=== PATIENT | female | born 1960 | race Caucasian/White ===

== ENCOUNTER 2025-01-14 16:20 | Inpatient (IN) | payer OTHER ==
[~2025-01-14] VITALS: Ht 152.4 cm; Wt 57.6 kg
[2025-01-14 16:30] VITALS: RESP 10; O2SAT 96
[2025-01-14] MEDS ORDERED: SODIUM CHLORIDE 0.9% 1,000 ML IV ONE (16:45)
--- NOTE | 2025-01-14 16:45 | ED.PDOC ---
Psychiatric HPI Comments 64-year-old female who presents to the ED via EMS complaint overdose EMS states patient [place] with friends who state patient overdosed on fentanyl Patient friends administered 3 rounds of Narcan and EMS was called EMS arrived on scene and noted patient was alert and oriented x3 but slow to answering questions Patient was in ambulance EN route to the ED and noted to appear drowsy and lethargic and EMS gave patient 2 mg IM Narcan and patient became alert and oriented EMS states patient refused IV prior to ED arrival Patient in the ED states she has overdosed on Narcan in the past and states she is currently on methadone which she states is compliant Patient now in the ED alert and oriented x3 patient with the ED as noted blood pressure 168/79 but otherwise stable vitals including heart rate 72 respiratory rate 16 temperature 97.1 F and O2 saturation of 96% on room air Past Medical history: CHF, hypertension Past Surgical history: back surgery Medications: Methadone Allergies: Denies Social history: denies ETOH, denies tobacco use, endorses drug use(fentanyl) carabasal: HPI: Poor Historian. Denies any fall or trauma or injury. REVIEW OF SYSTEMS: CONSTITUTIONAL: Denies acute: fever, diaphoresis, chills, HEAD: Denies acute: headache, photophobia Eyes: Denies acute: Double vision, vision loss, eye pain, eye discharge. EARS: Denies acute: tinnitus, hearing loss, ear discharge, ear pain, THROAT: Denies acute: sore throat, swelling, difficulty swallowing , pain with swallowing, change in voice. NECK: Denies acute: neck pain, neck swelling, stiff neck. HEART: Denies acute : chest pain, palpitations, LUNGS: Denies acute: SOB, wheezing, cough, hemoptysis ABDOMEN: Denies acute: abdominal pain, Nausea, Vomiting, diarrhea, melena , hematemesis, hematochezia SKIN: Denies acute: rash, redness, lesions, itchiness. EXTREMITIES: Denies acute: calf pain, numbness, tingling, weakness, denies pain in extremity. Denies acute: Low back pain. Neuro: Denies acute: focal neurological deficit, motor or sensory focal neurological deficit, tremors, seizure like activity, confusion, dizziness, change in mental status, loss of bowel or bladder function, cauda equina like symptoms. : Denies acute: dysuria, hematuria, flank pain, increase in urinary frequency. PSYCH: Denies acute: hallucination, suicidal ideation, homicidal ideation. FEMALE: Denies acute: abnormal vaginal bleeding, foul odor, unusual discharge. PHYSICAL EXAM: General: ------no--acute distress, awake and alert. Appears under the influence of fentanyl. Multiple tattoos noted. Patient is holding a cane. Head: normocephalic, atraumatic. Neck: supple, trachea is midline, no swelling. Throat: Normal phonation. Eyes:, no erythema, no purulent discharge, no proptosis, no icterus. Heart: regular rate, regular rhythm, no significant murmur appreciated. Lungs: no apparent respiratory distress, No wheezing, no rhonchi, no crackles. No stridors Clear to auscultation bilaterally. Abdomen: non tender to palpation, non distended, soft, no guarding, no rebound, + bowel sounds. Neuro: Awake, Alert, oriented to name, self, situation, follows commands GCS=15. Speech is normal. Skin: no petechia, no purpura, no cyanosis, non-pale, not jaundice. Lower extremities: --no - Pitting edema no deformity, no focal swelling, no calf TTP. Makes eye contact. moves all four extremities. Face: no apparent facial droop. ED COURSE: DISCLAIMER: This medical document was created using an electronic medical record system with voice recognition software and computerized dictation system. Although this document has been carefully reviewed, there might still be some phonetic and typographical errors. Occasional wrong-word or "sound-alike" substitutions may have occurred due to the inherent limitations of voice recognition software. These areas are purely typographical due to imperfections of the software programs and do not reflect any compromise in the patient's medical care. Please read the chart carefully and recognize, using context, where these substitutions have occurred. Chief Complaint: Overdose Time Seen by MD: 16:55 Reviewed Notes: Kerrick Kleaner Operator Notes, Medications, Allergies Information Source: Patient, Emergency Med Personnel Mode of Arrival: EMS Past Medical History PAST MEDICAL HISTORY: CHF, HTN Social History Drugs: Other (Fentanyl) Was a procedure done? Was a procedure done?: No Psych Differential Dx OD Differential Dx: Alcohol Abuse, Anxiety, Bipolar Disorder, Conversion Disorder, Delirium, Depression, Drug Overdose, Accidental, Intentional, Encephalopathy, Hallucinations, Homicidal, Panic Disorder, Personality Disorder, Renal Failure, Respiratory Failure, Schizophrenia, Substance Abuse, Suicidal Attempt, Suicidal Gesture X-Ray, Labs, Meds, VS Vital Signs Date Time Temp Pulse Resp B/P (MAP) Pulse Ox O2 Delivery O2 Flow Rate FiO2 01/15/25 00:00 85 19 124/76 (92) 99 01/14/25 23:28 84 147/90 01/14/25 22:28 86 159/90 01/14/25 22:00 87 15 151/83 (105) 98 01/14/25 21:13 182/103 01/14/25 20:12 184/95 01/14/25 20:00 81 01/14/25 19:25 76 192/104 (133) 01/14/25 19:00 70 7 161/91 (114) 99 01/14/25 17:00 98.4 74 10 168/96 (120) 96 98.4 01/14/25 16:30 10 96 Nasal Cannula* 2 28 01/14/25 16:28 97.1 72 16 168/79 96 97.1 Lab Test 01/14/25 19:57 01/14/25 18:02 01/14/25 16:56 01/14/25 16:36 Range/Units Total Bilirubin 0.3 0.3 0.2-1.0 mg/dL Direct Bilirubin < 0.1 <0.3 mg/dL Aspartate Amino Transferase (AST) 45 H 39 13-40 U/L Alanine Aminotransferase (ALT) 33 27 7-40 U/L Alkaline Phosphatase 145 H 130 H 46-116 U/L Troponin I High Sensitivity 8 7 7 </=34 ng/L Total Protein 8.1 7.9 5.7-8.2 g/dL Albumin 4.3 4.3 3.2-4.8 g/dL White Blood Count 3.7 L 4.4-10.8 10^3/uL Red Blood Count 4.28 4.0-5.20 10^6/uL Hemoglobin 11.7 L 12.2-16.2 g/dL Hematocrit 36.4 36.0-46.0 % Mean Corpuscular Volume 85.2 80.0-100.0 fL Mean Corpuscular Hemoglobin 27.4 L 28.0-32.0 pg Mean Corpuscular Hemoglobin Concent 32.2 32.0-36.0 g/dL Red Cell Distribution Width 13.5 11.8-14.3 % Platelet Count 251 140-450 10^3/uL Mean Platelet Volume 7.3 6.9-10.8 fL Neutrophils (%) (Auto) 52.6 37.0-80.0 % Lymphocytes (%) (Auto) 35.7 10.0-50.0 % Monocytes (%) (Auto) 10.5 0.0-12.0 % Eosinophils (%) (Auto) 0.5 0.0-7.0 % Basophils (%) (Auto) 0.7 0.0-2.0 % Neutrophils # (Auto) 2.0 1.6-8.6 10 ^3/uL Lymphocytes # (Auto) 1.3 0.4-5.4 10 ^3/uL Monocytes # (Auto) 0.4 0-1.3 10 ^3/uL Eosinophils # (Auto) 0 0-0.8 10 ^3/uL Basophils # (Auto) 0 0-0.2 10 ^3/uL Nucleated Red Blood Cells 0.3 % Sodium Level 138 136-145 mmol/L Potassium Level 3.6 3.5-5.1 mmol/L Chloride Level 103 98-107 mmol/L Carbon Dioxide Level 27 20-31 mmol/L Anion Gap 8 5-15 Blood Urea Nitrogen 26 H 9-23 mg/dL Creatinine 1.39 H 0.550-1.02 mg/dL Glomerular Filtration Rate Calc 42 >90 mL/min BUN/Creatinine Ratio 18.7 10.0-20.0 Serum Glucose 68 L 74-106 mg/dL Lactic Acid Level 1.3 0.4-2.0 mmol/L Calcium Level 9.5 8.7-10.4 mg/dL B-Type Natriuretic Peptide 82.61 0-100 pg/mL Urine Color Colorless Yellow Urine Clarity Clear Clear Urine pH 5.5 5.0-9.0 Urine Specific [place] 1.009 1.001-1.035 Urine Protein Negative Negative Urine Ketones Negative Negative Urine Blood Negative Negative /uL Urine Nitrite 2+ H Negative Urine Bilirubin Negative Negative Urine Urobilinogen Normal Negative mg/dL Urine Leukocyte Esterase Negative Negative /uL Urine RBC 1 0 - 4 /hpf Urine Microscopic WBC < 1 0-5 /HPF Urine Squamous Epithelial Cells Few <5 /hpf Urine Bacteria Few H None Seen /hpf Urine Hyaline Casts Few 0 - 2 /lpf Urine Granular Casts Few 0 /lpf Urine Glucose Normal Normal mg/dL Urine Opiates Screen Neg NEGATIVE Urine Fentanyl Screen Pos NEGATIVE Urine Barbiturates Screen Neg NEGATIVE Urine Phencyclidine Screen Neg NEGATIVE Urine Amphetamines Screen Pos NEGATIVE Urine Benzodiazepines Screen Neg NEGATIVE Urine Cocaine Screen Neg NEGATIVE Urine Cannabinoids Screen Neg NEGATIVE [facility] [id number] [place] [address] Ph: [phone] DIAGNOSTIC IMAGING Diagnostic Imaging Report : [id number] Signed PATIENT: NARCISA DUKE ACCT: [id number] UNIT: [id number] : 1960 LOC: ER ROOM / BED: / AGE / SEX: 64 / F ADM STATUS: REG ER SERVICE 35 ORDERING PHYSICIAN: EMILI GÓMEZ DO PROCEDURE(s): CXRP - CHEST PORTABLE REASON: OD, ALOC ORDER NUMBER(s): [id number], ACCESSION NUMBER(s): [id number] EXAM: XY CHEST PORTABLE HISTORY: OD, ALOC TECHNIQUE: 1 view of the chest COMPARISON: None FINDINGS/IMPRESSION: LUNGS: No pleural effusion, consolidation, or pneumothorax . Central pulmonary vascular congestion. Question peripheral interstitial edema and trace fluid along the right minor fissure. MEDIASTINUM: Unremarkable BONES: No acute osseous abnormality . Prior anterior cervical discectomy and fusion OTHER: None ATED BY: GAVIOTA MIGUEL MD DICTATED DATE/TIME: 01/14/251709 SIGNED BY: GAVIOTA MIGUEL MD SIGNED DATE/TIME: 01/14/251709 CC: Time of 1ST Reevaluation: 00:00 Reevaluation 1ST: N/A Patient Education/Counseling: Diagnosis, Treatment Family Education/Counseling: No Family Present Comments MDM: patient presented with the above HPI.--altered level of consciousness drug overdose----workup was initiated. patient was found with the above mentioned diagnosis. the following medications were ordered: please refer to order lists of meds and tests obtained by myself Dr. Gómez. Patient ED course and VS have been stabilized. Patient has been reassessed in the ED and remained in a stable condition. Pertinent incidental findings were discussed with the patient and/or family. Patient has been observed in the ED adequate length of time to insure improvement/stability. Escalation of care considered: Consideration of escalation to observation or admission Patient was ADMITTED to the medicine team for further evaluation and treatment of their presentation. All the reports of any imaging studies that were ordered by myself were reviewed by myself. Departure 1 Departure Time of Disposition: 19:30 Impression: Primary Impression: Overdose of fentanyl Additional Impressions: Methamphetamine abuse Hypertension Hypertensive crisis Altered level of consciousness Methadone dependence Disposition: ADMITTED INPATIENT Admit to: Tele Condition: Guarded e-Prescriptions No Active Prescriptions or Reported Meds Discharged With: Self Critical Care Note Critical Care Time?: Yes (1 hr-critical care time only) I personally scribed for EMILI GÓMEZ DO ([email or web address]) on 01/14/25 at 16:45. Electronically submitted by Ac Perez ([employer]). I personally scribed for EMILI GÓMEZ DO ([email or web address]) on 01/14/25 at 16:56. Electronically submitted by Ac Perez ([employer]). I personally scribed for EMILI GÓMEZ DO ([email or web address]) on 01/14/25 at 17:15. Electronically submitted by Ac Perez ([employer]). I personally scribed for EMILI GÓMEZ DO ([email or web address]) on 01/14/25 at 21:43. Electronically submitted by Ac Perez ([employer]). EMILI GÓMEZ DO Jan 14, 2025 16:45
--- NOTE | 2025-01-14 17:12 | DVH ---
EXAM: XY CHEST PORTABLE HISTORY: OD, ALOC TECHNIQUE: 1 view of the chest COMPARISON: None FINDINGS/IMPRESSION: LUNGS: No pleural effusion, consolidation, or pneumothorax . Central pulmonary vascular congestion. Q uestion peripheral interstitial edema and trace fluid along the right minor fissure. MEDIASTINUM: Unremarkable BONES: No acute osseous abnormality . Prior anterior cervical discectomy and fusion OTHER: None
[2025-01-14 17:13] LABS: Hematocrit 36.4 % (36.0-46.0); Hemoglobin 11.7 g/dL (12.2-16.2); Mean Corpuscular Hemoglobin 27.4 pg (28.0-32.0); Mean Corpuscular Volume 85.2 fL (80.0-100.0); Nucleated Red Blood Cells % 0.3 %
[2025-01-14 17:28] LABS: Alanine Aminotransferase 27 U/L (7-40); Albumin 4.3 g/dL (3.2-4.8); Alkaline Phosphatase 130 U/L (46-116); Anion Gap 8 (5-15); BUN/Creatinine Ratio 18.7 (10.0-20.0); Bilirubin, Total 0.3 mg/dL (0.2-1.0); Blood Urea Nitrogen 26 mg/dL (9-23); Calcium 9.5 mg/dL (8.7-10.4); Carbon Dioxide 27 mmol/L (20-31); Chloride 103 mmol/L (98-107); Glucose 68 mg/dL (74-106); Potassium 3.6 mmol/L (3.5-5.1); Sodium 138 mmol/L (136-145); Total Protein 7.9 g/dL (5.7-8.2)
[2025-01-14 18:37] LABS: Benzodiazephine Screen, Urine Neg (NEGATIVE)
[2025-01-14 18:39] LABS: Amphetamine Screen, Urine Pos (NEGATIVE); Barbiturate Scree,Urine Neg (NEGATIVE); Cannabinoid Screen, Urine Neg (NEGATIVE); Cocaine Screen, Urine Neg (NEGATIVE); Opiate Scree,Urine Neg (NEGATIVE); Phencyclidine Screen, Urine Neg (NEGATIVE)
[2025-01-14] MEDS: NALOXONE HCL 1MG/ML 2ML SYRINGE SUBCUT ONE (19:06)
[2025-01-14] MEDS: NALOXONE HCL 1MG/ML 2ML SYRINGE IV ONE ×2 (19:06→20:12)
[2025-01-14] MEDS: DEXTROSE (50%) 50ML SYRG IV ONE (19:06)
[2025-01-14] MEDS: hydrALAZINE HCL 20 MG/ML VL IV ONE ×3 (20:12→21:13)
--- NOTE | 2025-01-14 21:28 | DVH ---
Exam: CT HEAD WITHOUT CONTRAST History: HTN, OD Technique: [address] images through the posterior fossa and the supratentorial compart ment were acquired without contrast and imaged using soft tissue and bone algorithms. RADIATION DOSE: DLP 312.59 mGy.cm; CTDI vol 52.95 mGy. Comparison: None Findings: There is no evidence of an intracranial hemorrhage, acute large vessel infarct, mass effect, or midli ne shift. There is mild cerebral atrophy. No significant calcification of the carotid siphons. The calvarium, orbits, paranasal sinuses, sella, middle ears, and mastoids are unremarkable. The superficial soft tissues are within normal limits. Impression: 1. No acute intracranial abnormality.
--- NOTE | 2025-01-14 22:05 | ECG ---
[facility] Test Date: 2025-01-14 Test Time: 20:54:38 Pat Name: NARCISA DUKE Department: ED Room: 0270T Gender: F Boarding Mother: KIT : 1960 Requested By: EMILI GÓMEZ Order Number: [id number] Reading MD: Lupillo Crouch Measurements Intervals [place] Rate: 75 P: 84 WA: 161 QRS: 65 QRSD: 115 T: 81 QT: 497 QTc: 556 Interpretive Statements Sinus rhythm Nonspecific intraventricular conduction delay Anteroseptal infarct, age indeterminate Electronically Signed On 01-21-2025 21:45:23 PDT by Lupillo Crouch Please click the below link to view image of tracing.
[2025-01-14] MEDS: LABETALOL HCL 20 MG/4 ML VL IV ONE ×2 (22:28→22:29)
[2025-01-14] MEDS ORDERED: DEXTROSE (50%) 50ML SYRG IV PRN (22:30)
[2025-01-14 23:01] LABS: Alanine Aminotransferase 33 U/L (7-40); Total Protein 8.1 g/dL (5.7-8.2)
[2025-01-14 23:02] LABS: Albumin 4.3 g/dL (3.2-4.8)
[2025-01-14 23:05] LABS: Alkaline Phosphatase 145 U/L (46-116); Bilirubin, Total 0.3 mg/dL (0.2-1.0)
[2025-01-14 23:22] LABS: Urine Protein, UAD Negative (Negative)
[2025-01-14] MEDS: SODIUM CHLORIDE 0.9% 1,000 ML IV SCH (23:24)
[2025-01-14 23:27] LABS: Bilirubin, Direct < 0.1 mg/dL (<0.3)
[2025-01-15] VITALS (8 sets, daily range): BP systolic 116–149; BP diastolic 68–95; PULSE 66–88; RESP 16–20; TEMP 97–97.8; O2SAT 94–100
[2025-01-15] MEDS: InsuLIN REG 1unit/0.01ml Soln (100units/ml) SC SCH
[2025-01-15] MEDS: ACCU-CHEK COMFORT CURVE STRIP VI SCH (00:01)
--- NOTE | 2025-01-15 00:41 | DVHHPRES ---
History of Present Illness Resident Creating Document: LIAN CLARK RESIDENT History of Present Illness Preethi Feliciano this is a 64-year-old female patient who is brought via EMS to the ED due to altered level of consciousness. Due to clinical status obtain information from EMR. Patient's friends reported patient overdosed on fentanyl and they administered three rounds of Narcan and contacted EMS. When EMS arrived on scene patient was alert and oriented in three spheres but drowsy/somnolent, prompting professionals to bring patient to the emergency department. On route EMS administered 2 mg of IM Narcan due to worsening altered level of consciousness. Could not obtain review of systems since p atient does not recall events. Past medical history: Hypertension, congestive heart failure, rheumatoid arthritis status post cervical spine surgery Surgical history: Cervical spine surgery Family history: Noncontributory Social history: lives in [place] with roommates (next of kin is father). Smokes tobacco (40 pack-year history of smoking), actively smokes marijuana. Fentanyl and methamphetamine abuse. Denies alcohol and other drug abuse Allergies: Denies Home medication: Losartan Patient seen and examined at bedside. She is currently oriented in three spheres, but still very drowsy. Has no complaints. Past Medical History Per HPI Past Surgical History Per HPI Family History Per HPI Past Social History Per HPI Review of Systems Review of Systems Per HPI Allergies: Coded Allergies: NO KNOWN ALLERGIES (Unverified , 01/14/25) Medications Current Medications Medications Dose Ordered Sig/Diana Route Start Time Stop Time Status Last Admin Dose Admin Sodium Chloride 1,000 ml @ 60 mls/hr [id number] IV 01/14/25 22:30 01/14/25 23:24 60 MLS/HR Diagnostic Test (Pha) 1 strip Q6HR 01/15/25 00:00 01/15/25 00:01 1 STRIP Insulin Human Regular Q6HR SC 01/15/25 00:00 Dextrose 50 ml UD PRN IV 01/14/25 22:30 Exam Vital Signs Vital Signs Date Time Temp Pulse Resp B/P (MAP) Pulse Ox O2 Delivery O2 Flow Rate FiO2 01/15/25 00:00 85 19 124/76 (92) 99 01/14/25 17:00 98.4 98.4 01/14/25 16:30 Nasal Cannula* 2 28 Exam Patient lying in bed, in no acute distress General: Lucid, somnolent/drowsy, afebrile, mucosae are moist Cardiovascular: Normal S1 and S2. No murmurs, gallops or rubs Respiratory: Normal ventilation mechanics. Clear lung sounds on auscultation Abdomen: Soft, nontender, no organomegaly, normal bowel sounds MSK/skin: Mobilizes 4 limbs. Skin is dry and warm Neurological: Oriented in 3 spheres. No motor no sensitive deficits. Pupils are isocoric and reactive Labs/Xrays Labs Test 01/14/25 19:57 01/14/25 16:56 01/14/25 16:36 Range/Units Total Bilirubin 0.3 0.2-1.0 mg/dL Direct Bilirubin < 0.1 <0.3 mg/dL Aspartate Amino Transferase (AST) 45 H 13-40 U/L Alanine Aminotransferase (ALT) 33 7-40 U/L Alkaline Phosphatase 145 H 46-116 U/L Troponin I High Sensitivity 8 </=34 ng/L Total Protein 8.1 5.7-8.2 g/dL Albumin 4.3 3.2-4.8 g/dL White Blood Count 3.7 L 4.4-10.8 10^3/uL Red Blood Count 4.28 4.0-5.20 10^6/uL Hemoglobin 11.7 L 12.2-16.2 g/dL Hematocrit 36.4 36.0-46.0 % Mean Corpuscular Volume 85.2 80.0-100.0 fL Mean Corpuscular Hemoglobin 27.4 L 28.0-32.0 pg Mean Corpuscular Hemoglobin Concent 32.2 32.0-36.0 g/dL Red Cell Distribution Width 13.5 11.8-14.3 % Platelet Count 251 140-450 10^3/uL Mean Platelet Volume 7.3 6.9-10.8 fL Neutrophils (%) (Auto) 52.6 37.0-80.0 % Lymphocytes (%) (Auto) 35.7 10.0-50.0 % Monocytes (%) (Auto) 10.5 0.0-12.0 % Eosinophils (%) (Auto) 0.5 0.0-7.0 % Basophils (%) (Auto) 0.7 0.0-2.0 % Neutrophils # (Auto) 2.0 1.6-8.6 10 ^3/uL Lymphocytes # (Auto) 1.3 0.4-5.4 10 ^3/uL Monocytes # (Auto) 0.4 0-1.3 10 ^3/uL Eosinophils # (Auto) 0 0-0.8 10 ^3/uL Basophils # (Auto) 0 0-0.2 10 ^3/uL Nucleated Red Blood Cells 0.3 % Sodium Level 138 136-145 mmol/L Potassium Level 3.6 3.5-5.1 mmol/L Chloride Level 103 98-107 mmol/L Carbon Dioxide Level 27 20-31 mmol/L Anion Gap 8 5-15 Blood Urea Nitrogen 26 H 9-23 mg/dL Creatinine 1.39 H 0.550-1.02 mg/dL Glomerular Filtration Rate Calc 42 >90 mL/min BUN/Creatinine Ratio 18.7 10.0-20.0 Serum Glucose 68 L 74-106 mg/dL Lactic Acid Level 1.3 0.4-2.0 mmol/L Calcium Level 9.5 8.7-10.4 mg/dL B-Type Natriuretic Peptide 82.61 0-100 pg/mL Urine Color Colorless Yellow Urine Clarity Clear Clear Urine pH 5.5 5.0-9.0 Urine Specific [place] 1.009 1.001-1.035 Urine Protein Negative Negative Urine Ketones Negative Negative Urine Blood Negative Negative /uL Urine Nitrite 2+ H Negative Urine Bilirubin Negative Negative Urine Urobilinogen Normal Negative mg/dL Urine Leukocyte Esterase Negative Negative /uL Urine RBC 1 0 - 4 /hpf Urine Microscopic WBC < 1 0-5 /HPF Urine Squamous Epithelial Cells Few <5 /hpf Urine Bacteria Few H None Seen /hpf Urine Hyaline Casts Few 0 - 2 /lpf Urine Granular Casts Few 0 /lpf Urine Glucose Normal Normal mg/dL Urine Opiates Screen Neg NEGATIVE Urine Fentanyl Screen Pos NEGATIVE Urine Barbiturates Screen Neg NEGATIVE Urine Phencyclidine Screen Neg NEGATIVE Urine Amphetamines Screen Pos NEGATIVE Urine Benzodiazepines Screen Neg NEGATIVE Urine Cocaine Screen Neg NEGATIVE Urine Cannabinoids Screen Neg NEGATIVE SEPSIS Sepsis Screen Date sepsis recognized/suspect: Jan 14, 2025 Time Sepsis recognized/suspect: 1619 Recent Procedure: No On Antibiotic Therapy: No Respiratory Rate >20: No Heart Rate >90: No Temp<36 C (96.8 F) or >38.3 C: No SBP <90 or MAP <65 mmHG: No New Acute Mental Status Change: No Is the patient on CPAP, BIPAP,: No Physician Orders Head Without Contrast (01/14/25 20:23) Complete Blood Count (01/15/25 04:00) Basic Metabolic Panel (01/15/25 04:00) Sodium Chloride 0.9% (01/14/25 22:30) Glucose Blood (Accu-Chek Comfort Curve T (01/15/25 00:00) Insulin R (Human) (Insulin R) (01/15/25 00:00) Dextrose 50% Syringe (01/14/25 22:30) Admit (01/15/25 00:38) Code Status (01/15/25 00:38) Acetaminophen Tablet (Tylenol Tablet) (01/15/25 00:45) Npo (Nothing By Mouth) Diet (01/15/25 Breakfast) Echo 2d Mode Cardiac Dop (01/15/25 00:38) Lovenox 40mg (01/15/25 10:00) Oxygen By Nasal Cannula (01/15/25 00:38) Stat Ekg For Chest Pain (01/15/25 00:38) Notify Md Of Changes From Base (01/15/25 00:38) Clam Shucker For 24 Hours (01/15/25 00:38) Emergency Dysrhythmia Protocol (01/15/25 00:38) Rhythm Strips Once Every Shift (01/15/25 00:38) Vital Signs Date Time Temp Pulse Resp B/P (MAP) Pulse Ox O2 Delivery O2 Flow Rate FiO2 01/15/25 00:00 85 19 124/76 (92) 99 01/14/25 23:28 84 147/90 01/14/25 22:28 86 159/90 01/14/25 22:00 87 15 151/83 (105) 98 01/14/25 21:13 182/103 01/14/25 20:12 184/95 01/14/25 20:00 81 01/14/25 19:25 76 192/104 (133) 01/14/25 19:00 70 7 161/91 (114) 99 01/14/25 17:00 98.4 74 10 168/96 (120) 96 98.4 Laboratory Tests Test 01/14/25 16:56 Lactic Acid Level 1.3 mmol/L (0.4-2.0) White Blood Count 3.7 10^3/uL (4.4-10.8) L Medications Medications Dose Ordered Sig/Diana Route Start Time Stop Time Status Last Admin Dose Admin Dextrose 50 ml ONCE ONCE IV 01/14/25 17:45 01/14/25 17:48 DC 01/14/25 19:06 50 ML Diagnostic Test (Pha) 1 strip Q6HR 01/15/25 00:00 01/15/25 00:01 1 STRIP Hydralazine HCl 5 mg ONCE ONCE IV 01/14/25 19:30 01/14/25 19:58 DC 01/14/25 20:12 5 MG Hydralazine HCl 10 mg ONCE ONCE IV 01/14/25 21:00 01/14/25 21:01 DC 01/14/25 21:13 10 MG Labetalol HCl 5 mg ONCE ONCE IV 01/14/25 22:30 01/14/25 22:31 DC 01/14/25 22:28 5 MG Naloxone HCl 4 mg ONCE ONCE IV 01/14/25 16:45 01/14/25 16:46 DC 01/14/25 19:06 4 MG Naloxone HCl 4 mg ONCE ONCE IV 01/14/25 19:45 01/14/25 19:58 DC 01/14/25 20:12 4 MG Sodium Chloride 1,000 ml @ 60 mls/hr [id number] IV 01/14/25 22:30 01/14/25 23:24 60 MLS/HR Assessment/Plan Assessment/Plan Toxic encephalopathy Opiate overdose Polysubstance abuse Completed head CT with no acute intracranial pathology Patient received naloxone to revert opiates affect, received total of five doses. Counseled strongly on cessation of polysubstance abuse for over 16 minutes (UDS positive for opiates and methamphetamine) Admitted the patient to telemetry Acute respiratory failure secondary to depression of respiratory drive Currently on oxygen therapy with Venturi mask at 0.28 FiO2 Hypertensive urgency (probably secondary to methamphetamine) Congestive heart failure no exacerbation (unknown LVEF) Admit to telemetry EKG shows sinus rhythm and no ST elevation, old anterior infarct Ordered echocardiogram Optimize antihypertensive medication KEREN hemodynamically mediated (VMN) Currently on IV fluids with normal saline 60 mL/hr Follow up with BNP Rheumatoid arthritis status post cervical spine surgery Per patient she is not on any DMARDs Recommend follow up with bullard machine operator specialist as outpatient Goals of care discussed with patient for over 18 minutes: Full code status Discussed plan with Dr. Manzanares, patient and nurses: We will admit patient to optimize medical treatment at this point, ordered complementary workup. Patient has poor prognosis Plan discussed with: Patient, Other (Nurses) My Orders Orders - LIAN CLARK Procedure Category Date Status Time Complete Blood Count LAB 01/15/25 Logged 04:00 Basic Metabolic Panel LAB 01/15/25 Logged 04:00 Sodium Chloride 0.9% PHA 01/14/25 In Process 22:30 Glucose Blood PHA 01/15/25 In Process (Accu-Chek Comfort 00:00 Insulin R (Human) PHA 01/15/25 In Process (Insulin R) 00:00 Dextrose 50% Syringe PHA 01/14/25 In Process 22:30 Admit ADMIT 01/15/25 Verified 00:38 Code Status CODE 01/15/25 Verified 00:38 Acetaminophen Tablet PHA 01/15/25 Verified (Tylenol Tablet) 00:45 Npo (Nothing By DIET 01/15/25 Verified Mouth) Diet Breakfast Echo 2d Mode Cardiac US 01/15/25 Verified DOP 00:38 Lovenox 40mg [facility] 01/15/25 Verified 10:00 Oxygen By Nasal RT 01/15/25 Verified Cannula 00:38 Stat Ekg For Chest [facility] 01/15/25 Verified Pain 00:38 Notify Md Of Changes [facility] 01/15/25 Verified From Base 00:38 Clam Shucker For [facility] 01/15/25 Verified 24 Hours 00:38 Emergency Dysrhythmia [facility] 01/15/25 Verified Protocol 00:38 Rhythm Strips Once [facility] 01/15/25 Verified Every Shift 00:38 Date of Service: Jan 15, 2025 Billing Provider: VIKTORIYA MANZANARES MD Common Visit Codes: [id number] INP/OBS CARE (HIGH) Secondary Visit Codes: [id number] CARE PLAN 30 MINUTES LIAN CLARK RESIDENT Jan 15, 2025 00:41
[2025-01-15] MEDS ORDERED: ACETAMINOPHEN 325 MG TAB PO PRN (00:45)
[2025-01-15 04:40] LABS: Hematocrit 38.1 % (36.0-46.0); Hemoglobin 12.7 g/dL (12.2-16.2); Mean Corpuscular Hemoglobin 28.2 pg (28.0-32.0); Mean Corpuscular Volume 84.5 fL (80.0-100.0); Nucleated Red Blood Cells % 0.1 %
[2025-01-15 04:50] LABS: Chloride 107 mmol/L (98-107); Sodium 141 mmol/L (136-145)
[2025-01-15 04:51] LABS: Anion Gap 10 (5-15); Calcium 9.4 mg/dL (8.7-10.4); Carbon Dioxide 24 mmol/L (20-31); Potassium 3.4 mmol/L (3.5-5.1)
[2025-01-15 04:56] LABS: BUN/Creatinine Ratio 20.0 (10.0-20.0); Blood Urea Nitrogen 19 mg/dL (9-23); Glucose 97 mg/dL (74-106)
[2025-01-15] MEDS: ENOXAPARIN SOD 40 MG/0.4 ML SYRINGE SC SCH (09:05)
--- NOTE | 2025-01-15 12:40 | DVHPN2 ---
Subjective The patient is seen and examined at bedside. The patient is sleepy but more alert awake. The patient will wake up if I talk to her. Reviewed: Care Plan, H&P, Labs, Medications, Previous Orders, Radiology Changes from previous H/P or p: No Changes Objective Vitals Vital Signs Date Time Temp Pulse Resp B/P (MAP) Pulse Ox O2 Delivery O2 Flow Rate FiO2 01/15/25 08:07 Venturi Mask 6 N/A 01/15/25 05:00 71 19 142/84 (103) 100 01/15/25 01:00 97.8 97.8 Intake/Output Intake and Output 01/15/25 07:00 Intake Total 60 ml Output Total 1700 ml Balance -1640 ml Intake Oral 0 ml IV Total 60 ml Output Urine Total 1700 ml General Appearance: Alert HEENT: Atraumatic, PERRLA, EOMI, Mucous membr. moist/pink Neck: Supple Lungs: Clear to auscultation, Normal air movement Cardiovascular: Regular rate, Normal S1, Normal S2, No murmurs, Gallops, Rubs Abdomen: Normal bowel sounds, Soft, No tenderness Neuro: Cranial nerves 3-12 NL Psych/Mental Status: Mental status NL Medications Current Medications Medications Dose Ordered Sig/Diana Route Start Time Stop Time Status Last Admin Dose Admin Sodium Chloride 1,000 ml @ 60 mls/hr [id number] IV 01/14/25 22:30 01/14/25 23:24 60 MLS/HR Diagnostic Test (Pha) 1 strip Q6HR 01/15/25 00:00 01/15/25 06:00 1 STRIP Insulin Human Regular Q6HR SC 01/15/25 00:00 Dextrose 50 ml UD PRN IV 01/14/25 22:30 Acetaminophen 325 mg Q4HP PRN PO 01/15/25 00:45 Enoxaparin Sodium 40 mg DAILY SC 01/15/25 10:00 01/15/25 09:05 40 MG Laboratory Results Laboratory Tests 01/15/25 03:43 Chemistry Test 01/14/25 16:56 01/14/25 19:57 01/15/25 03:43 Albumin 4.3 g/dL (3.2-4.8) 4.3 g/dL (3.2-4.8) Calcium Level 9.5 mg/dL (8.7-10.4) 9.4 mg/dL (8.7-10.4) Total Protein 7.9 g/dL (5.7-8.2) 8.1 g/dL (5.7-8.2) Cardiac Markers Test 01/14/25 16:56 B-Type Natriuretic Peptide 82.61 pg/mL (0-100) LFT Test 01/14/25 16:56 01/14/25 19:57 Alanine Aminotransferase (ALT) 27 U/L (7-40) 33 U/L (7-40) Alkaline Phosphatase 130 U/L (46-116) H 145 U/L (46-116) H Aspartate Amino Transferase (AST) 39 U/L (13-40) 45 U/L (13-40) H Total Bilirubin 0.3 mg/dL (0.2-1.0) 0.3 mg/dL (0.2-1.0) Direct Bilirubin < 0.1 mg/dL (<0.3) Urinalysis Test 01/14/25 16:36 Urine Color Colorless (Yellow) Urine Clarity Clear (Clear) Urine pH 5.5 (5.0-9.0) Urine Specific [employer] [place] 1.009 (1.001-1.035) Urine Protein Negative (Negative) Urine Ketones Negative (Negative) Urine Blood Negative /uL (Negative) Urine Nitrite 2+ (Negative) H Urine Bilirubin Negative (Negative) Urine Urobilinogen Normal mg/dL (Negative) Urine Leukocyte Esterase Negative /uL (Negative) Urine RBC 1 /hpf (0 - 4) Urine Microscopic WBC < 1 /HPF (0-5) Urine Squamous Epithelial Cells Few /hpf (<5) Urine Bacteria Few /hpf (None Seen) H Urine Hyaline Casts Few /lpf (0 - 2) Urine Granular Casts Few /lpf (0) Urine Glucose Normal mg/dL (Normal) Labs and/or images reviewed: Labs reviewed by me Assessment/Plan Assessment/Plan Toxic encephalopathy Opiate overdose Polysubstance abuse Completed head CT with no acute intracranial pathology Patient received naloxone to revert opiates affect, received total of five doses. Counseled strongly on cessation of polysubstance abuse for over 18 minutes (UDS positive for opiates and methamphetamine) Acute respiratory failure secondary to depression of respiratory drive Currently on oxygen therapy with Venturi mask at 0.28 FiO2 Hypertensive urgency (probably secondary to methamphetamine) Congestive heart failure no exacerbation (unknown LVEF) EKG shows sinus rhythm and no ST elevation, old anterior infarct Ordered echocardiogram Optimize antihypertensive medication KEREN hemodynamically mediated (VMN) Currently on IV fluids with normal saline 60 mL/hr Follow up with BNP Rheumatoid arthritis status post cervical spine surgery Per patient she is not on any DMARDs Recommend follow up with gang investigator specialist as outpatient Continuing current management. Since the patient is more alert awake today even to keep the conversation and she expressed that she hungry I am going to start her back on diet with regular diet. Planning discharge in a.m. if continuing to improve her mental status. Advised to stop using drugs more than 18 minutes. This medical document was created using an electronic medical record system with [email or web address] direct computerized dictation system. Although this document has been carefully reviewed, there may still be some phonetic and typographical errors. These areas are purely typographical due to imperfections of the software programs, and do not reflect any compromise in the patient's medical care. Plan discussed with: Patient Date of Service: Jan 15, 2025 Billing Provider: BABAK FREDERICK MD Common Visit Codes: [id number] INP/OBS CARE(HIGH) BABAK FREDERICK MD Jan 15, 2025 12:40
--- NOTE | 2025-01-15 19:56 | DVHSR ---
APPROVED REPORT EXAM: Two-dimensional and M-mode echocardiogram with Doppler and color Doppler. Blood Pressure: 142/84 mmHg INDICATION Heart Failure RISK FACTORS Height: 5', Weight: 121 DIMENSIONS LVDd4.8 (3.8-5.7cm)LA (2D)3.2 (1.9-4.0cm)Aortic Root3.3 (2.0-3.7cm) LVDs4.1 (2.5-4.0cm)LA (MM) (1.9-4.0cm)Aortic Cusp Exc1.8 (1.5-2.0cm) EF (%) 32.0 (55-70%)Rt. Atrium2.9 (1.9-4.0cm)Asc. Aorta3.2 cm IVSd1.4 (0.7-1.1cm)RV (D)2.2 (1.8-2.4cm) PWd1.0 (0.7-1.1cm) Mitral Valve MitralMitral Stenosis E/A ratio0.02D MVAcm2 Aortic Valve Aortic ValveAortic Stenosis V10.90m/Travis Mean GR.3mmHg V21.10m/Travis Peak GR.5mmHg LVOT Diameter2.0 (1.8-2.4cm)Doppler AVA2.57cm2 Pulmonic Valve V20.90m/s Conclusion MODERATE DEGREE LVH AND MODERATE DEGREE LV DIASTOLIC DYSFUNCTION LV EF IS 32% AND IS REDUCED DYSKINESIS OF IVS GLOBAL LV HYPOKINESIS NO PERICARDIAL EFFUSION NORMAL VALVES
[2025-01-16 00:39] VITALS: BP 148/88; PULSE 76; RESP 18; TEMP 97.6; O2SAT 100
[2025-01-16 05:00] VITALS: BP 143/92; PULSE 78; RESP 18; TEMP 98; O2SAT 100
[2025-01-16 06:34] LABS: Hematocrit 39.4 % (36.0-46.0); Hemoglobin 12.8 g/dL (12.2-16.2); Mean Corpuscular Hemoglobin 27.7 pg (28.0-32.0); Mean Corpuscular Volume 85.4 fL (80.0-100.0); Nucleated Red Blood Cells % 0.1 %
[2025-01-16 06:43] LABS: Anion Gap 11 (5-15); Calcium 9.5 mg/dL (8.7-10.4); Carbon Dioxide 25 mmol/L (20-31); Chloride 104 mmol/L (98-107); Potassium 4.0 mmol/L (3.5-5.1); Sodium 140 mmol/L (136-145)
[2025-01-16 06:49] LABS: BUN/Creatinine Ratio 17.6 (10.0-20.0); Blood Urea Nitrogen 16 mg/dL (9-23)
[2025-01-16 06:51] LABS: Glucose 110 mg/dL (74-106)
[2025-01-16 08:00] VITALS: PULSE 69; PULSE 77
[2025-01-16 09:00] VITALS: BP 154/81; PULSE 75; RESP 18; TEMP 97.4; O2SAT 99
[2025-01-16 13:00] VITALS: BP 143/84; PULSE 84; RESP 18; TEMP 98.7; O2SAT 94
--- NOTE | 2025-01-16 13:18 | DVHPN2 ---
Subjective The patient is seen and examined at bedside. The patient is sleepy but more alert awake. The patient will wake up if I talk to her. Reviewed: Care Plan, H&P, Labs, Medications, Previous Orders, Radiology Objective Vitals Vital Signs Date Time Temp Pulse Resp B/P (MAP) Pulse Ox O2 Delivery O2 Flow Rate FiO2 01/16/25 09:00 97.4 75 18 154/81 (105) 99 97.4 01/16/25 08:00 Nasal Cannula* 2 28 Intake/Output Intake and Output 01/16/25 07:00 Intake Total 818 ml Output Total 850 ml Balance -32 ml Intake Oral 218 ml IV Total 600 ml Output Urine Total 850 ml General Appearance: Alert HEENT: Atraumatic, PERRLA, EOMI, Mucous membr. moist/pink Neck: Supple Lungs: Clear to auscultation, Normal air movement Cardiovascular: Regular rate, Normal S1, Normal S2, No murmurs, Gallops, Rubs Abdomen: Normal bowel sounds, Soft, No tenderness Neuro: Cranial nerves 3-12 NL Psych/Mental Status: Mental status NL Medications Current Medications Medications Dose Ordered Sig/Diana Route Start Time Stop Time Status Last Admin Dose Admin Sodium Chloride 1,000 ml @ 60 mls/hr [id number] IV 01/14/25 22:30 01/15/25 15:10 60 MLS/HR Diagnostic Test (Pha) 1 strip Q6HR 01/15/25 00:00 01/16/25 11:27 1 STRIP Insulin Human Regular Q6HR SC 01/15/25 00:00 Dextrose 50 ml UD PRN IV 01/14/25 22:30 Acetaminophen 325 mg Q4HP PRN PO 01/15/25 00:45 Enoxaparin Sodium 40 mg DAILY SC 01/15/25 10:00 01/15/25 09:05 40 MG Laboratory Results Laboratory Tests 01/16/25 05:10 Chemistry Test 01/16/25 05:10 Calcium Level 9.5 mg/dL (8.7-10.4) Urinalysis Test 01/14/25 16:36 Urine Color Colorless (Yellow) Urine Clarity Clear (Clear) Urine pH 5.5 (5.0-9.0) Urine Specific [place] 1.009 (1.001-1.035) Urine Protein Negative (Negative) Urine Ketones Negative (Negative) Urine Blood Negative /uL (Negative) Urine Nitrite 2+ (Negative) H Urine Bilirubin Negative (Negative) Urine Urobilinogen Normal mg/dL (Negative) Urine Leukocyte Esterase Negative /uL (Negative) Urine RBC 1 /hpf (0 - 4) Urine Microscopic WBC < 1 /HPF (0-5) Urine Squamous Epithelial Cells Few /hpf (<5) Urine Bacteria Few /hpf (None Seen) H Urine Hyaline Casts Few /lpf (0 - 2) Urine Granular Casts Few /lpf (0) Urine Glucose Normal mg/dL (Normal) Assessment/Plan Assessment/Plan Toxic encephalopathy Opiate overdose Polysubstance abuse Completed head CT with no acute intracranial pathology Patient received naloxone to revert opiates affect, received total of five doses. Counseled strongly on cessation of polysubstance abuse for over 18 minutes (UDS positive for opiates and methamphetamine) Acute respiratory failure secondary to depression of respiratory drive Currently on oxygen therapy with Venturi mask at 0.28 FiO2 Hypertensive urgency (probably secondary to methamphetamine) Congestive heart failure no exacerbation (unknown LVEF) EKG shows sinus rhythm and no ST elevation, old anterior infarct Ordered echocardiogram Optimize antihypertensive medication KEREN hemodynamically mediated (VMN) Currently on IV fluids with normal saline 60 mL/hr Follow up with BNP Rheumatoid arthritis status post cervical spine surgery Per patient she is not on any DMARDs Recommend follow up with blood bank technologist specialist as outpatient Continuing current management. Since the patient is more alert awake today even to keep the conversation and she expressed that she hungry I am going to start her back on diet with regular diet. Planning discharge in a.m. if continuing to improve her mental status. Advised to stop using drugs more than 18 minutes. This medical document was created using an electronic medical record system with [employer] direct computerized dictation system. Although this document has been carefully reviewed, there may still be some phonetic and typographical errors. These areas are purely typographical due to imperfections of the software programs, and do not reflect any compromise in the patient's medical care. My Orders Orders - BABAK FREDERICK MD Procedure Category Date Status Time Regular Diet DIET 01/15/25 Transmitted Dinner Complete Blood Count LAB 01/17/25 Verified 05:00 Complete Blood Count LAB 01/18/25 Verified 05:00 Complete Blood Count LAB 01/19/25 Verified 05:00 Complete Blood Count LAB 01/20/25 Verified 05:00 Basic Metabolic Panel LAB 01/17/25 Verified 05:00 Basic Metabolic Panel LAB 01/18/25 Verified 05:00 Basic Metabolic Panel LAB 01/19/25 Verified 05:00 Basic Metabolic Panel LAB 01/20/25 Verified 05:00 BABAK FREDERICK MD Jan 16, 2025 13:18
--- NOTE | 2025-01-16 14:21 | DVHDS2 ---
Discharge Summary Date of Admission Jan 15, 2025 at 00:38 Date of Discharge: Jan 16, 2025 Admitting Diagnosis Toxic encephalopathy Opiate overdose Polysubstance abuse Acute respiratory failure secondary to depression of respiratory drive Congestive heart failure no exacerbation (unknown LVEF) KEREN hemodynamically mediated (VMN) Rheumatoid arthritis status post cervical spine surgery Labs/Diagnostic Data: Laboratory Results Test 01/16/25 11:25 01/16/25 05:10 01/14/25 19:57 01/14/25 16:56 POC Glucose 128 mg/dl (70-106) White Blood Count 4.8 10^3/uL (4.4-10.8) Red Blood Count 4.61 10^6/uL (4.0-5.20) Hemoglobin 12.8 g/dL (12.2-16.2) Hematocrit 39.4 % (36.0-46.0) Mean Corpuscular Volume 85.4 fL (80.0-100.0) Mean Corpuscular Hemoglobin 27.7 pg (28.0-32.0) Mean Corpuscular Hemoglobin Concent 32.4 g/dL (32.0-36.0) Red Cell Distribution Width 13.4 % (11.8-14.3) Platelet Count 293 10^3/uL (140-450) Mean Platelet Volume 7.5 fL (6.9-10.8) Neutrophils (%) (Auto) 73.0 % (37.0-80.0) Lymphocytes (%) (Auto) 19.9 % (10.0-50.0) Monocytes (%) (Auto) 6.5 % (0.0-12.0) Eosinophils (%) (Auto) 0.2 % (0.0-7.0) Basophils (%) (Auto) 0.4 % (0.0-2.0) Neutrophils # (Auto) 3.5 10 ^3/uL (1.6-8.6) Lymphocytes # (Auto) 1.0 10 ^3/uL (0.4-5.4) Monocytes # (Auto) 0.3 10 ^3/uL (0-1.3) Eosinophils # (Auto) 0 10 ^3/uL (0-0.8) Basophils # (Auto) 0 10 ^3/uL (0-0.2) Nucleated Red Blood Cells 0.1 % Sodium Level 140 mmol/L (136-145) Potassium Level 4.0 mmol/L (3.5-5.1) Chloride Level 104 mmol/L (98-107) Carbon Dioxide Level 25 mmol/L (20-31) Anion Gap 11 (5-15) Blood Urea Nitrogen 16 mg/dL (9-23) Creatinine 0.91 mg/dL (0.550-1.02) Glomerular Filtration Rate Calc 70 mL/min (>90) BUN/Creatinine Ratio 17.6 (10.0-20.0) Serum Glucose 110 mg/dL (74-106) Calcium Level 9.5 mg/dL (8.7-10.4) Total Bilirubin 0.3 mg/dL (0.2-1.0) Direct Bilirubin < 0.1 mg/dL (<0.3) Aspartate Amino Transferase (AST) 45 U/L (13-40) Alanine Aminotransferase (ALT) 33 U/L (7-40) Alkaline Phosphatase 145 U/L (46-116) Troponin I High Sensitivity 8 ng/L (</=34) Total Protein 8.1 g/dL (5.7-8.2) Albumin 4.3 g/dL (3.2-4.8) Lactic Acid Level 1.3 mmol/L (0.4-2.0) B-Type Natriuretic Peptide 82.61 pg/mL (0-100) Test 01/14/25 16:36 Urine Color Colorless (Yellow) Urine Clarity Clear (Clear) Urine pH 5.5 (5.0-9.0) Urine Specific [place] 1.009 (1.001-1.035) Urine Protein Negative (Negative) Urine Ketones Negative (Negative) Urine Blood Negative /uL (Negative) Urine Nitrite 2+ (Negative) Urine Bilirubin Negative (Negative) Urine Urobilinogen Normal mg/dL (Negative) Urine Leukocyte Esterase Negative /uL (Negative) Urine RBC 1 /hpf (0 - 4) Urine Microscopic WBC < 1 /HPF (0-5) Urine Squamous Epithelial Cells Few /hpf (<5) Urine Bacteria Few /hpf (None Seen) Urine Hyaline Casts Few /lpf (0 - 2) Urine Granular Casts Few /lpf (0) Urine Glucose Normal mg/dL (Normal) Urine Opiates Screen Neg (NEGATIVE) Urine Fentanyl Screen Pos (NEGATIVE) Urine Barbiturates Screen Neg (NEGATIVE) Urine Phencyclidine Screen Neg (NEGATIVE) Urine Amphetamines Screen Pos (NEGATIVE) Urine Benzodiazepines Screen Neg (NEGATIVE) Urine Cocaine Screen Neg (NEGATIVE) Urine Cannabinoids Screen Neg (NEGATIVE) Other Laboratory Tests 01/16/25 05:10 Brief Hx & Hospital Course: This is a 64 years old female brought into emergency department because altered mental status. Per friend who brought her in the patient was overdose on fentanyl and they had giving her three rounds of Narcan and called EMS. When EMS came the patient was alert and oriented x3 but drowsy and somnolent. The patient was brought to emergency department for further workup. The patient was given IV fluid. The patient was given Ativan PRN. The patient subsequently more alert awake. The patient's urine drug screen was positive for opiate and methamphetamine. Counseled the patient to stop polysubstance abuse. Patient is alert oriented x3 today. Advised the patient to follow up with primary care physician 1-2 weeks. Activity as tolerated. Diet per home diet. Physical exam: HEENT: Normocephalic atraumatic pupils equal react to light and accommodation. Extraocular muscles intact, conjunctiva pink, oropharynx moist, no thrush, no exudate. Lymphatic: No lymphadenopathy Cardiovascular exam: S1, S2 was heard. No murmurs, rubs, gallops Lung: Clear on auscultation bilaterally, no wheeze, rale, rhonchi. GI: Abdominal soft, nondistended, nontenderness, positive bowel sounds. Extremity: No crepitus, cyanosis, edema. Pedal pulses present bilateral. Full range of motion. Skin: Normal turgor, no rash. Psych: Alert, oriented x3. Neurology: No focal deficits, cranial nerve II to XII grossly intact. This medical document was created using an electronic medical record system with [employer] direct computerized dictation system. Although this document has been carefully reviewed, there may still be some phonetic and typographical errors. These areas are purely typographical due to imperfections of the software programs, and do not reflect any compromise in the patient's medical care. Condition at Discharge: Stable Final Diagnosis/Problems List Acute Toxic encephalopathy Opiate overdose Polysubstance abuse Acute respiratory failure secondary to depression of respiratory drive Congestive heart failure no exacerbation (unknown LVEF) KEREN hemodynamically mediated (VMN) Rheumatoid arthritis status post cervical spine surgery Discharge Disposition: Home Discharge Instruct/Medications Diet: Regular Activity: No Restrictions, As Tolerated Follow Up/Referral: pcp 1-2 weeks Medications: None No Active Prescriptions or Reported Meds Discharge Statement: "Patient was advised to return to the ER or call 911 if any headaches, dizziness, shortness of breath, chest pain, abdominal pain, bleeding, fevers, or worsening of medical condition. Patient was counseled about treatment plan, medications, possible side effects, patientverbalized understanding. All questions were answered to the best of my ability. This discharge took greater then 30 minutes in planning, reviewing documentation, counseling the patient, and discussing with other team members." ASSESSMENT ASSESSMENT Assessment Acute encephalopathy Date of Service: Jan 16, 2025 Billing Provider: BABAK FREDERICK MD Common Visit Codes: [id number] DISCH DAY >30min BABAK FREDERICK MD Jan 16, 2025 14:21
[2025-01-16 14:38] VITALS: BP 143/84; PULSE 84; RESP 18; TEMP 98.7; O2SAT 94
== END 2025-01-16 17:00 | disposition home or self-care (01) | DRG 812 ==
LOC: ER 16:20 → EDBD 16:20 → OVERFLOW 01-15 00:38 → TELE-WESTW 01-15 02:05
PROVIDERS: ADMIT Internal Medicine; ATTEND Internal Medicine
DX: T40.411A Poisoning by fentanyl or fentanyl analogs, accidental (unintentional), initial encounter (principal); N17.0 Acute kidney failure with tubular necrosis; G92.8 Other toxic encephalopathy; J96.00 Acute respiratory failure, unspecified whether with hypoxia or hypercapnia; F11.20 Opioid dependence, uncomplicated; I16.0 Hypertensive urgency; F32.A Depression, unspecified; I50.9 Heart failure, unspecified; I11.0 Hypertensive heart disease with heart failure; F15.10 Other stimulant abuse, uncomplicated; M06.8A Other specified rheumatoid arthritis, other specified site; F19.10 Other psychoactive substance abuse, uncomplicated; Z87.891 Personal history of nicotine dependence; Y92.89 Other specified places as the place of occurrence of the external cause
CPT/HCPCS: 36415; 70450; 71045; 80048; 80053; 80076; 80307; 81001; 82962; 83605; 83880; 84484; 85025; 93005; 93306; 96374; 96375; G0378